=== PATIENT | female | born 1985 | race Two or more races ===

== ENCOUNTER 2017-03-30 16:13 | Emergency (ER) | payer OTHER ==
--- NOTE | 2017-03-30 16:34 | ED ---
Complex/Multi-Sys Presentation - HPI Summary HPI Summary: Pt here w/ withdrawal sx today of pain, fatigue and nausea w/ vomiting. Missed suboxone today as she forgot it at home in [facility]. She is admitted at [facility]. ISTOP indicates pt receives suboxone 8mg PO SL daily - will provide 1 x dose today. Pt states she will be getting remaining meds tomorrow. 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 - Allergies/Home Medications Allergies/Adverse Reactions: Allergies Allergy/AdvReac Type Severity Reaction Status Date / Time No Known Allergies Allergy Verified 03/30/17 16:26 PMH/Surg Hx/FS Hx/Imm Hx Previously Healthy: Yes Infectious Disease History: Yes Infectious Disease History: Denies: Traveled Outside the [place] in Last 30 Days - Social History Lives: Detention - [facility] Hx Substance Use: Yes Substance Use Type: Reports: Cocaine, Other - opiates - rx'd suboxone now Review of Systems Constitutional: Other - see HPI Positive: Photophobia Positive: Nasal Discharge - rhinorrhea Negative: Chest Pain Negative: Shortness Of Breath Positive: Vomiting Positive: no symptoms reported Positive: Arthralgia, Myalgia Skin: Negative Positive: Headache Positive: Anxious All Other Systems Reviewed And Are Negative: Yes Physical Exam Triage Information Reviewed: Yes Vital Signs On Initial Exam: Initial Vitals Temp Pulse Resp BP Pulse Ox 97.9 F 89 18 152/102 100 03/30/17 16:16 03/30/17 16:16 03/30/17 16:16 03/30/17 16:16 03/30/17 16:16 Vital Signs Reviewed: Yes Appearance: Positive: Ill-Appearing - pt lying prone on stretcher, , moaning - as soon as we discussed providing suboxone, pt perks up and is happy w/ relief. , Obese Skin: Positive: Warm - sweating Head/Face: Positive: Normal Head/Face Inspection Eyes: Positive: EOMI, Conjunctiva Clear ENT: Positive: Hearing grossly normal, Nasal drainage - clear rhinorrhea Respiratory/Lung Sounds: Positive: Clear to Auscultation, Breath Sounds Present Cardiovascular: Positive: Normal, RRR Abdomen Description: Positive: Soft Musculoskeletal: Positive: Normal, Strength/ROM Intact Neurological: Positive: Normal, Sensory/Motor Intact, Alert, Oriented to Person Place, Time, CN Intact II-III Psychiatric: Positive: Other - see above - no SI/HI Diagnostics - Vital Signs Vital Signs Temp Pulse Resp BP Pulse Ox 03/30/17 16:16 97.9 F 89 18 152/102 100 - Laboratory Lab Statement: Any lab studies that have been ordered have been reviewed, and results considered in the medical decision making process. Re-Evaluation - Re-Evaluation First Eval Change: Unchanged - nausea s/p 4mg zofran in EMS Second Eval Change: Improved - s/p suboxone 8mg SL, zofran 6mg IV and NS Complex Multi-Symp Course/Dx Course Of Treatment: Pt here for Opioid withdrawal - uses suboxone through medical rx'er and forgot dose today - having withdrawal sx. Will have access to her meds tomorrow. Will provide 1 x dose here today. Pt is happy and relieved. Vital sign recheck reveals improvement and pt's sx improved. Left in stable condition. Advised to f/u w/ [facility] as directed and return to ED if danger s/sx present. - Diagnoses Provider Diagnoses: Withdrawal from opioids Discharge - Discharge Plan Condition: Stable Disposition: HOME Patient Education Materials: Opioid Withdrawal (ED) Referrals: [facility] [Outside] Additional Instructions: You received a one time dose of suboxone here today - follow-up with PCP or [facility] for ongoing treatment Stay hydrated - drink water, gatorade, broth ,etc You may use zofran for nausea and immodium for diarrhea *If you develop intractable vomiting, diarrhea, sweats, headache, visual change , chest pain or shortness of breath, return to ED
[2017-03-30] MEDS ORDERED: Ondansetron INJ* 2 MG/ML VIAL IV ONE ×2 (16:50→16:52)
[2017-03-30] MEDS ORDERED: NS 0.9% 1000 ML* 1,000 ML IV ONE (16:50)
[2017-03-30] MEDS ORDERED: Ondansetron INJ* 2 MG/ML VIAL ONE ×2 (16:51→16:52)
[2017-03-30 16:56] VITALS: BP 152/78
[2017-03-31] MEDS ORDERED: Buprenorphine/Naloxone 8-2 MG SL TAB* 1 TAB PO ONE (16:25)
== END 2017-03-30 17:54 | disposition home or self-care (01) ==
LOC: ED 16:13
DX: F11.23 Opioid dependence with withdrawal (principal); R11.2 Nausea with vomiting, unspecified; R53.83 Other fatigue; M79.1 Myalgia; T40.0X5A Adverse effect of opium, initial encounter; Y92.9 Unspecified place or not applicable
CPT/HCPCS: 96374; 99282; A9270-GY; J2405

== ENCOUNTER 2017-04-01 18:28 | Emergency (ER) | payer OTHER ==
[2017-04-01 19:07] VITALS: BP 173/86
[2017-04-01] MEDS ORDERED: Metoclopramide TAB* 10 MG PO ONE ×2 (19:15→19:44)
--- NOTE | 2017-04-01 19:26 | ED ---
Kai Ruiz Angela, scribed for Reg Finley on 04/01/17 at 1913 . Complex/Multi-Sys Presentation - HPI Summary HPI Summary: This pt is a 31 y/0 [facility]/o [facility], vomiting, and chills. Pt reports she the last time she had 8 mg of Suboxone was yesterday in the ED. Pt describes cold sweats since yesterday. She notes her doctor is out until tomorrow and is unable to get Suboxone today. Pt is from [employer]. Pt denies chest pain, SOB, abd pain. She states she quit smoking cigarettes and has not had any drugs in a couple of days. PMHx: IVDU. - History Of Current Complaint Chief Complaint: EDDetoxRequest Time Seen by Provider: 04/01/17 18:57 Hx Obtained From: Patient Onset/Duration: Lasting Hours Timing: Hours Associated Signs And Symptoms: Positive: Nausea, Vomiting, Other - cold sweats and body aches. Negative: SOB, Chest Pain, Palpitations - Allergies/Home Medications Allergies/Adverse Reactions: Allergies Allergy/AdvReac Type Severity Reaction Status Date / Time No Known Allergies Allergy Verified 03/30/17 16:26 PMH/Surg Hx/FS Hx/Imm Hx Endocrine/Hematology History: Denies: Hx Diabetes Cardiovascular History: Denies: Hx Hypertension Infectious Disease History: No Infectious Disease History: Denies: Traveled Outside the [place] in Last 30 Days - Family History Known Family History: Negative: Seizure Disorder - Social History Alcohol Use: unknown Hx Substance Use: Yes Substance Use Type: Reports: Cocaine, Other Smoking Status (MU): Former Smoker Review of Systems Positive: Chills. Negative: Fever Negative: Chest Pain Negative: Shortness Of Breath Positive: Vomiting, Nausea. Negative: Abdominal Pain Positive: Myalgia - body aches Negative: Headache, Weakness All Other Systems Reviewed And Are Negative: Yes Physical Exam Vital Signs On Initial Exam: Initial Vitals Temp Pulse Resp BP Pulse Ox 98.5 F 58 18 168/84 98 04/01/17 18:33 04/01/17 18:33 04/01/17 18:33 04/01/17 18:33 04/01/17 18:33 Appearance: Positive: Well-Appearing, No Pain Distress Skin: Positive: Warm, Skin Color Reflects Adequate Perfusion, Dry Head/Face: Positive: Normal Head/Face Inspection Eyes: Positive: EOMI, ITZ ENT: Positive: Normal ENT inspection Neck: Positive: Supple, Nontender Respiratory/Lung Sounds: Positive: Clear to Auscultation, Breath Sounds Present Cardiovascular: Positive: RRR, Pulses are Symmetrical in both Upper and Lower Extremities Abdomen Description: Positive: Nontender, Soft Bowel Sounds: Positive: Present Musculoskeletal: Positive: Normal, Strength/ROM Intact Neurological: Positive: Normal, Sensory/Motor Intact, Alert, Oriented to Person Place, Time - [place] Coma Scale Coma Scale Total: 15 Diagnostics - Vital Signs Vital Signs Temp Pulse Resp BP Pulse Ox 04/01/17 19:00 87 173/86 99 04/01/17 18:40 168/84 04/01/17 18:35 58 97 04/01/17 18:33 98.5 F 58 18 168/84 98 - Laboratory Lab Statement: Any lab studies that have been ordered have been reviewed, and results considered in the medical decision making process. Complex Multi-Symp Course/Dx Assessment/Plan: Pt is a 31 y/o female [facility] c/o nausea, vomiting , and chills. Pt reports she the last time she had 8 mg of Suboxone was yesterday in the ED and is requesting more today. I checked with the charge nurse and the last time the pt received suboxone was today morning. She does not need suboxone today evening. We will give the pt reglan and will discharge the pt to follow up with the rehab clinic. Pt is refusing lab work up, therefore pt will be discharged with follow up with rehab clinic and pmd in the next three dyas. - Diagnoses Provider Diagnoses: Substance abuse Discharge - Discharge Plan Condition: Stable Disposition: HOME Patient Education Materials: Narcotic Abuse (ED) Referrals: [facility] [Outside] Additional Instructions: Please follow up with the rehab clinic. The documentation as recorded by the Kai urena Angela accurately reflects the service I personally performed and the decisions made by , Reg Finley.
[2017-04-01] MEDS ORDERED: Metoclopramide TAB* 10 MG ONE (19:37)
== END 2017-04-01 19:58 | disposition home or self-care (01) ==
LOC: ED 18:28
DX: R11.2 Nausea with vomiting, unspecified (principal); F19.10 Other psychoactive substance abuse, uncomplicated; Z87.891 Personal history of nicotine dependence
CPT/HCPCS: 99283; A9270-GY

== ENCOUNTER 2017-04-03 07:52 | Observation (INO) | payer OTHER ==
[2017-04-03] MEDS ORDERED: NS 0.9% 1000 ML* 2,000 ML IV ONE (09:16)
[2017-04-03] MEDS ORDERED: Ondansetron INJ* 2 MG/ML VIAL IV ONE (09:16)
[2017-04-03 09:54] LABS: Hematocrit 47 % (35-47); Hemoglobin 15.8 g/dl (12.0-16.0); Mean Corpuscular HGB Conc 34 g/dl (31-36); Mean Corpuscular Hemoglobin 29 pg (27-31); Mean Corpuscular Volume 85 fL (80-97); Mean Platelet Volume 8 um3 (7.4-10.4); Red Blood Count 5.47 10^6/ul (4.0-5.4); Red Cell Distribution Width 14 % (10.5-15); White Blood Count 17.7 10^3/ul (3.5-10.8)
[2017-04-03 10:06] LABS: Albumin 4.5 g/dL (3.2-5.2); C Reactive Protein 2.66 mg/L (< 5.00); Calcium 10.1 mg/dL (8.6-10.3); EGFR African American 106.8 (>60); Globulin 3.3 g/dL (2-4); Potassium 2.8 mmol/L (3.5-5.0); Total Bilirubin 0.6 mg/dL (0.2-1.0); Total Protein 7.8 g/dL (6.4-8.9)
[2017-04-03] MEDS ORDERED: Iohexol 300* (CONTRAST) 10 ML SDV IV ONE (11:37)
[2017-04-03] MEDS ORDERED: Metoclopramide IV* 5 MG/ML 2 ML VIAL IV SLOW PU ONE (12:07)
--- NOTE | 2017-04-03 12:12 | RAD ---
CLINICAL HISTORY: Vomiting, abdominal pain COMPARISON: None TECHNIQUE: Multiple contiguous axial CT scans were obtained of the abdomen and pelvis after the administration of intravenous contrast. Coronal and sagittal multiplanar reformations are submitted for review. Oral contrast was administered. Delayed images were obtained through the abdomen and pelvis. FINDINGS: LUNG BASES: The lung bases are clear. LIVER: The liver is normal in shape, size, contour, and attenuation. BILE DUCTS: There is no intrahepatic or extrahepatic biliary dilatation. GALLBLADDER: The gallbladder is normal, without pericholecystic inflammatory change. PANCREAS: The pancreas is normal, without mass or ductal dilatation. SPLEEN: Normal in size and appearance. UPPER GI TRACT: Evaluation of the gastrointestinal tract is limited by incomplete gastric distention. The upper GI tract is unremarkable. SMALL BOWEL AND MESENTERY: The small bowel is normal in contour, course, and caliber. There is no obstruction or dilatation. COLON: The colon is normal in contour, course, caliber. There is no pericolonic inflammatory change. There is a tubular, vermiform, hollow viscus that is blind ending, and originates from the cecum, consistent with a normal appendix. There is no periappendiceal inflammatory change. This is best seen on axial images 47 through 57. ADRENALS: Normal bilaterally. KIDNEYS: The kidneys are normal in shape, size, contour, and axis. There is no hydronephrosis or nephrolithiasis. BLADDER: The bladder is smooth in contour. PELVIC ORGANS: The uterus and adnexa are grossly normal for technique. AORTA: The aorta is normal. IVC: Unremarkable LYMPH NODES: There is no lymphadenopathy by size criteria. ABDOMINAL WALL: There is no evidence for abdominal wall hernia. BONES AND SOFT TISSUES: Unremarkable OTHER: None IMPRESSION: NO OBSTRUCTION. NO ACUTE CT PATHOLOGY OF THE VISUALIZED ABDOMEN OR PELVIS
[2017-04-03] MEDS: KCL 10 MEQ/50 ML IVPREMIX* 10 MEQ/50 ML BAG IV SCH ×3 (12:45→19:06)
[2017-04-03] MEDS ORDERED: Lidocaine 1% INJ* 10 MG/ML 30 ML SDV ONE (14:42)
[2017-04-03] MEDS ORDERED: Ondansetron INJ* 2 MG/ML VIAL IV PRN (16:10)
[2017-04-03] MEDS ORDERED: Acetaminophen TAB* 325 MG PO PRN (16:10)
[2017-04-03] MEDS ORDERED: diPHENhydraMINE PO* 25 MG PO PRN (16:12)
[2017-04-03] MEDS ORDERED: NON FORMULARY MED* (Melatonin [Melatonin] 5 MG) PO PRN (16:12)
[2017-04-03] MEDS ORDERED: Magnesium Hydroxide LIQ* 30 ML UDC PO PRN (16:12)
[2017-04-03] MEDS ORDERED: Aspirin TAB* 325 MG PO PRN (16:12)
[2017-04-03 16:19] LABS: Magnesium 2.2 mg/dL (1.9-2.7)
[2017-04-03 16:47] LABS: Urine Bilirubin Negative (Negative); Urine Glucose Negative (Negative); Urine Nitrite Negative (Negative)
[2017-04-03] MEDS ORDERED: Scopolamine 1.5 mg* PATCH TRANSDERM SCH (17:00)
[2017-04-03] MEDS ORDERED: KCL 10 MEQ/50 ML IVPREMIX* 10 MEQ/50 ML BAG ONE (17:05)
[2017-04-03] MEDS: Pantoprazole IV* 40 MG IV SCH (17:25)
[2017-04-03] MEDS: PROCHLORPERAZINE INJ 5 MG/ML 2 ML VIAL IV PRN (17:27)
[2017-04-03] MEDS ORDERED: CMCS: Melatonin (NF) 3 MG TAB PO PRN (21:13)
--- NOTE | 2017-04-03 21:54 | HP ---
ADMISSION HISTORY AND PHYSICAL: DATE OF ADMISSION: 04/03/2017. PRIMARY CARE PROVIDER: Out of the area. ADMITTING PROVIDER: AREN Nixon SUPERVISING PHYSICIAN: Dr. Razia Maciel* (dictated by AREN Nixon). CHIEF COMPLAINT: Intractable nausea and vomiting. HISTORY OF PRESENT ILLNESS: This is a 31-year-old female with a history of IV drug abuse, who presented to the emergency department with complaints of intractable vomiting. This is the third time in the last week that she presented with the same complaint since she states that she has had no improvement over that period of time. She entered [facility] opiate treatment program on Sunday, which is when her symptoms started and she states that she has really been unable to tolerate anything by mouth since that time. She is currently on Suboxone maintenance prescribed by [facility] site acquisition specialist. The patient states that she has not had a bowel movement in several days, but is passing gas. She denies any abdominal bloating. She does have some diffuse abdominal tenderness the frequency that she has been vomiting causing abdominal muscle tenderness, but no true abdominal pain. She states that her vomitus has been bilious and denies any blood or coffee-ground emesis. The patient states that she has had similar symptoms in the past generally exacerbated by some inciting factor, but when she starts vomiting, she has a difficult times stopping. There is a report that she may have been diagnosed with cyclic vomiting syndrome in the past and has previously been evaluated by Gastroenterology in the [facility], but was told that they were unable to find anything wrong with her. PAST MEDICAL HISTORY: 1. IV drug abuse, currently in treatment on Suboxone therapy. 2. Cyclic vomiting syndrome. 3. Hidradenitis. PAST SURGICAL HISTORY: Tubal ligation. HOME MEDICATIONS: 1. Acetaminophen 325 to 650 mg p.o. q.6 hours as needed for pain and fever. 2. Aspirin 325 mg p.o. daily. 3. Bismuth subsalicylate 524 mg p.o. q.1 hour as needed for nausea and vomiting. 4. Suboxone 8/2 mg sublingual daily. 5. Tums 500 to 1000 mg p.o. twice daily as needed for indigestion. 6. Docusate 100 mg p.o. b.i.d. 7. Ibuprofen 400 mg p.o. q.6 hours as needed for pain. 8. Milk of magnesia 30 mL p.o. daily. 9. Melatonin 5 mg p.o. at bedtime as needed. 10. Reglan 10 mg p.o. q.8 hours as needed for nausea. 11. Multivitamin 1 tablet p.o. daily. 12. Nicotine patch 21 mg transdermal daily. 13. MiraLAX 17 g p.o. daily. 14. Throat lozenges, 1 lozenge p.o. q.2 hours as needed. 15. Benadryl 25 to 50 mg p.o. q.4 to 6 hours as needed. 16. Mucinex 1200 mg p.o. b.i.d. as needed. SOCIAL HISTORY: The patient is currently in inpatient rehab at [facility]. She is a resident of [place] and has an apartment there waiting for when she has completed her rehab process. She does have about a 23-iagg-f-year smoking history and quit a few days ago. She has known history of IV drug abuse. REVIEW OF SYSTEMS: As noted in HPI. All other systems reviewed and otherwise negative. PHYSICAL EXAMINATION GENERAL: This is a 31-year-old female, who is pleasant and cooperative, and in no acute distress at the time of evaluation. VITAL SIGNS: Initially, temperature 98.2 degrees Fahrenheit, pulse 65 beats per minute, respiratory rate 18 per minute, oxygen saturation 95% on room air, and blood pressure 135/96 mmHg. HEENT: Head is normocephalic, atraumatic. Mucous membranes are mildly dry. RESPIRATORY: Lungs are clear to auscultation without wheezes, crackles, or rhonchi. CARDIOVASCULAR: Heart has a regular rate and rhythm without murmurs, rubs, or gallops. ABDOMEN: Soft. Diffusely tender to palpation especially in the epigastric region with bowel sounds present. PSYCH: The patient is alert, appropriately oriented and affect is appropriate to the situation. SKIN: She has multiple scarred area, which she states are prior abscesses related to her hidradenitis, but no active lesions nor concerning rashes. DIAGNOSTIC STUDIES/LAB DATA: CBC demonstrates white blood cell count of 17,700 , hemoglobin of 15.8 g/dL, and platelet count of 421,000. Comprehensive metabolic panel shows sodium of 133, potassium of 2.8, serum bicarb of 33, BUN of 13, creatinine 0.81, glucose of 119, lactic acid 0.8, magnesium 2.2. Transaminases are within normal limits. Normal total bilirubin. Lipase normal at 14. Imaging: CT abdomen and pelvis shows no acute process. ASSESSMENT AND PLAN: This is a 31-year-old female with a history of IV drug abuse, who recently entered rehab, who presents with complaints of intractable nausea and vomiting. 1. Intractable nausea and vomiting - suspect that her symptoms likely started as at least mild opiate withdrawal. She is now on Suboxone therapy for several days and doubt that acute withdrawal is still driving her symptoms, but she may have a cyclical component to her persistent vomiting and certainly has likely developed a gastritis as a result of well. No evidence of gastrointestinal hemorrhage and no acute pathology identified on CT. We plan to hydrate her with IV fluids, use regular IV antiemetics as well as a scopolamine patch and initiate IV Protonix for suspected gastritis. 2. Leukocytosis - assume that this is reactive due to her nausea and vomiting. 3. Hypokalemia secondary to gastrointestinal loss. 4. IV drug abuse - continue Suboxone. 5. Hidradenitis - no active lesion. 6. Code status. The patient is full code. 7. DVT prophylaxis. The patient is relatively low risk, but will be placed on SCDs. 8. Healthcare proxy is unknown at this time. DISPOSITION: The patient is being admitted to observation status for her intractable nausea and vomiting with anticipated length of stay to be less than 2 midnights. AREN NIXON [id number]/[facility] #: [id number] [facility]PITALRoger
[2017-04-04 08:10] VITALS: BP 111/64
[2017-04-04] MEDS: Pantoprazole IV* 40 MG IV SCH (08:58)
[2017-04-04] MEDS ORDERED: Nicotine PATCH 21 MG/24 HR* PATCH TRANSDERM SCH (09:00)
[2017-04-04] MEDS ORDERED: Influenza VAC *QUAD* 2017-18* 0.5 ML SYRINGE IM ONE (09:00)
[2017-04-04] MEDS ORDERED: Buprenorphine/Naloxone 8-2 MG SL TAB* 1 TAB SL SCH (09:00)
[2017-04-04 09:14] LABS: Hematocrit 37 % (35-47); Hemoglobin 12.6 g/dl (12.0-16.0); Mean Corpuscular HGB Conc 34 g/dl (31-36); Mean Corpuscular Hemoglobin 29 pg (27-31); Mean Corpuscular Volume 87 fL (80-97); Mean Platelet Volume 8 um3 (7.4-10.4); Red Cell Distribution Width 14 % (10.5-15); White Blood Count 7.2 10^3/ul (3.5-10.8)
[2017-04-04 09:30] LABS: BUN/Creatinine Ratio 11.8 (8-20); Calcium 8.5 mg/dL (8.6-10.3); EGFR African American 114.9 (>60); EGFR Non-African American 89.4 (>60); Potassium 3.2 mmol/L (3.5-5.0)
[2017-04-04] MEDS ORDERED: Potassium Chlor TAB* 20 MEQ TAB.ER PO ONE (11:26)
[2017-04-04] MEDS: PROCHLORPERAZINE INJ 5 MG/ML 2 ML VIAL IV PRN (11:40)
[2017-04-04] MEDS ORDERED: Nicotine Patch Removal NOTE PATCH OFF SCH (21:00)
--- NOTE | 2017-04-05 06:11 | DS ---
DISCHARGE SUMMARY: DATE OF ADMISSION: 04/03/17 DATE OF DISCHARGE: 04/04/17 PRIMARY CARE PROVIDER: Out of the area. DISCHARGING PROVIDER: AREN Nixon SUPERVISING PHYSICIAN: Dr. Juventino Almendarez* (dictated by AREN Nixon). PRIMARY DISCHARGE DIAGNOSES: 1. Intractable nausea and vomiting, likely secondary to opioid withdrawal and acute gastritis. 2. Leukocytosis likely reactive in nature secondary to profuse vomiting. 3. Hypokalemia secondary to GI loss. SECONDARY DISCHARGE DIAGNOSES: 1. History of intravenous drug abuse, recently entered rehab and started on Suboxone therapy. 2. Hidradenitis without any active lesion. DISCHARGE MEDICATIONS: 1. Acetaminophen 325 mg p.o. q.6 hours as needed for pain or fever. 2. Aspirin 325 mg p.o. daily. 3. Bismuth subsalicylate 524 mg p.o. q.1 hour as needed for nausea. 4. Suboxone 8/2 mg sublingual tab daily. 5. Tums 500 to 1000 mg p.o. twice daily as needed for indigestion. 6. Docusate 100 mg p.o. b.i.d. 7. Milk of mag 30 mL p.o. daily. 8. Melatonin 5 mg p.o. at bedtime. 9. Reglan 10 mg p.o. q.8 hours as needed for nausea. 10. Multivitamin 1 tablet p.o. daily. 11. Nicotine patch 21 mg transdermally daily. 12. Omeprazole 40 mg p.o. daily. 13. Zofran 4 mg p.o. q. 6 hours as needed for nausea. 14. MiraLAX 17 g p.o. daily. 15. Compazine 10 mg p.o. q.6 hours as needed for nausea. 16. Throat lozenges 1 lozenge p.o. q.2 hours as needed. 17. Benadryl 25 to 50 mg p.o. q.4 to 6 hours as needed. 18. Mucinex 1200 mg p.o. twice daily. Medication changes included: 1. P.r.n. Zofran. 2. P.r.n. Compazine. 3. Omeprazole. HOSPITAL IMAGING: CT of the abdomen and pelvis shows no obstruction or other acute pathology. HOSPITAL COURSE: This is a 31-year-old female with history of IV drug abuse, recently entered rehab and started on Suboxone therapy as well as hidradenitis and diagnosis of cyclic vomiting syndrome who presented to the emergency department with intractable nausea and vomiting. This is her third visit in the last week with the same complaint. The patient states that the symptoms started the day that she entered rehab. She has been unable to eat or drink anything of significance since that time. She is complaining of some diffuse abdominal tenderness which she equated to her multiple bouts of vomiting. No associated diarrhea, fevers, or other acute illness. No hematemesis or coffee- ground emesis noted. The patient underwent CT in the emergency department for her symptoms which yielded no acute pathology. She was subsequently admitted due to her intractable symptoms. She was hydrated and given regular antiemetic medications and she was able to quickly progress to a regular diet with some mild nausea, but no further vomiting. Due to the severity and frequency of her vomiting, she was also started on a PPI for a presumed associated gastritis, which is likely contributing to her persistent symptoms. DISPOSITION AND FOLLOWUP PLAN: The patient is going to be returning to [facility]. Recommend starting PPI as noted above and continuing with p.r.n. antiemetics. AREN NIXON [id number]/[facility] #: [id number] ANGY
--- NOTE | 2017-04-06 14:50 | ED ---
Ghulam Ruiz Thomas, scribed for Jason Palmer MD on 04/03/17 at 0935 . GI/ HPI - HPI Summary HPI Summary: The pt is a 31 y/o F presenting to the ED c/o persistent nausea and vomiting that began five days ago. She says she is unable to keep any fluids or solids down. She has not had a BM in the last 5 days, which is abnormal for her. She has a Hx of tubal ligation. She also complains of mild L-sided abdominal pain. She is a voluntary resident at [facility] for her prior crack cocaine and opiate use. Per patient, she has been off of these drugs for the last two months. She is on suboxone. She was seen at [facility] ED two and four days ago for withdrawal symptoms after she ran out of suboxone. The patient says that she as evaluated yesterday by the [facility] physician and she now has suboxone and has been taking her usual dose yesterday and today as directed. Pt additionally c/o dark urine. Pt denies dysuria, hematuria, dizziness, and lightheadedness. - History of Current Complaint Chief Complaint: EDGeneral Time Seen by Provider: 04/03/17 08:39 Stated Complaint: NAUSEA/VOMITING Hx Obtained From: Patient Onset/Duration: Started Days Ago - onset five days ago, Still Present Timing: Constant Severity: Severe Pain Intensity: 5 Location of Pain: Other - L-sided Associated Signs and Symptoms: Positive: Nausea, Vomiting, Other: - Dark urine. NEGATIVE: hematuria. Negative: Dizziness, Dysuria, Lightheadedness Aggravating Factor(s): Nothing Alleviating Factor(s): Nothing - Allergy/Home Medications Allergies/Adverse Reactions: Allergies Allergy/AdvReac Type Severity Reaction Status Date / Time No Known Allergies Allergy Verified 03/30/17 16:26 Home Medications: Home Medications Acetaminophen TAB* [Tylenol TAB*] 325 - 650 mg PO Q6HR 04/03/17 [History Confirmed 04/03/17] Aspirin TAB* [Aspirin 325 MG TAB*] 325 mg PO DAILY PRN 04/03/17 [History Confirmed 04/03/17] Bismuth Subsalicylate 524 mg PO Q1H PRN 04/03/17 [History Confirmed 04/03/17] Buprenorphine/Naloxone SL TAB* [Suboxone 8-2 mg SL TAB*] 1 tab.sl SL DAILY 04/03 [History Confirmed 04/03/17] Calcium Carbonate CHEW TAB* [Tums*] 500 - 1,000 mg PO BID PRN 04/03/17 [History Confirmed 04/03/17] Docusate CAP* [Colace Cap*] 100 mg PO BID PRN 04/03/17 [History Confirmed ] Ibuprofen TAB* [Advil TAB*] 400 mg PO Q6H PRN 04/03/17 [History Confirmed ] Magnesium Hydroxide LIQ* [Milk of Magnesia LIQ*] 30 ml PO DAILY PRN 04/03/17 [ History Confirmed 04/03/17] Melatonin 5 mg PO BEDTIME PRN 04/03/17 [History Confirmed 04/03/17] Metoclopramide TAB* [Reglan TAB*] 10 mg PO Q8H PRN 04/03/17 [History Confirmed 04/03/17] Multivitamins/Minerals TAB* [Theragran/minerals TAB*] 1 tab PO DAILY 04/03/17 [ History Confirmed 04/03/17] Nicotine PATCH 21 MG/24 HR* 21 mg TRANSDERM DAILY 04/03/17 [History Confirmed ] Polyethylene Glycol 3350* [Miralax*] 17 gm PO DAILY PRN 04/03/17 [History Confirmed 04/03/17] Throat Lozenges [Cough Drops Menthol] 1 val PO Q2HR PRN 04/03/17 [History Confirmed 04/03/17] diPHENhydraMINE PO* [Benadryl PO 25 MG TAB*] 25 - 50 mg PO .Q4-6H PRN 04/03/17 [ History Confirmed 04/03/17] guaiFENesin ER TAB [Mucinex*] 1,200 mg PO BID PRN 04/03/17 [History Confirmed ] PMH/Surg Hx/FS Hx/Imm Hx Previously Healthy: No Endocrine/Hematology History: Denies: Hx Diabetes Cardiovascular History: Denies: Hx Hypertension - Surgical History Surgery Procedure, Year, and Place: Tubal ligation - Immunization History Immunizations Up to Date: Unable to Obtain/Confirm Infectious Disease History: No Infectious Disease History: Denies: Traveled Outside the [place] in Last 30 Days - Family History Known Family History: Negative: Seizure Disorder - Social History Alcohol Use: None Hx Substance Use: Yes Substance Use Type: Reports: Cocaine, Other - Opiates Smoking Status (MU): Former Smoker Review of Systems Negative: Fever, Chills Negative: Erythema - eyes Negative: Sore Throat Negative: Chest Pain Negative: Shortness Of Breath Positive: Abdominal Pain - mild L-sided, Vomiting - onset five days ago, Nausea - onset five days ago Positive: other - Dark urine. Negative: dysuria, hematuria Negative: Myalgia, Edema - legs Negative: Rash Neurological: Other - NEGATIVE: dizziness, lightheadedness All Other Systems Reviewed And Are Negative: Yes Physical Exam - Summary Physical Exam Summary: Constitutional: Well-developed, Well-nourished, Alert. (-) Distressed Skin: Warm, Dry HENT: Normocephalic; Atraumatic Eyes: Conjunctiva normal Neck: Musculoskeletal ROM normal neck. (-) JVD, (-) Stridor, (-) Tracheal deviation Cardio: Rhythm regular, rate normal, Heart sounds normal; Intact distal pulses; The pedal pulses are 2+ and symmetric. Radial pulses are 2+ and symmetric. (-) Murmur Pulmonary/Chest wall: Effort normal. (-) Respiratory distress, (-) Wheezes, (-) Rales Abd: There is mild LLQ tenderness. Soft, (-) Distension, (-) Guarding, (-) Rebound Musculoskeletal: (-) Edema Lymph: (-) Cervical adenopathy Neuro: Alert, Oriented x3 Psych: Mood and affect Normal Triage Information Reviewed: Yes Vital Signs On Initial Exam: Initial Vitals Temp Pulse Resp BP Pulse Ox 98.2 F 65 18 135/96 95 04/03/17 08:02 04/03/17 08:02 04/03/17 08:02 04/03/17 08:02 04/03/17 08:02 Vital Signs Reviewed: Yes - Mathew Coma Scale Coma Scale Total: 15 Diagnostics - Vital Signs Vital Signs Temp Pulse Resp BP Pulse Ox 04/03/17 08:02 98.2 F 65 18 135/96 95 - Laboratory Result Diagrams: 04/03/17 09:32 04/03/17 09:32 Lab Statement: Any lab studies that have been ordered have been reviewed, and results considered in the medical decision making process. - CT CT Abd/Pel CT Interpretation: No Acute Changes - NO OBSTRUCTION. NO ACUTE CT PATHOLOGY OF THE VISUALIZED ABDOMEN OR PELVIS ED physician has reviewed this radiology report and agrees. CT Interpretation Completed By: Radiologist Re-Evaluation - Re-Evaluation First Eval Re-Evaluation Time: 12:07 Change: Unchanged Comment: The patient is vomiting her contrast. She says she has been admitted to [facility] for vomiting previously. She has had potassium previously as well. Second Eval Re-Evaluation Time: 14:40 Change: Unchanged Comment: She is still vomiting GIGU Course/Dx - Course Assessment/Plan: The pt is a 31 y/o F presenting to the ED c/o persistent nausea and vomiting that began five days ago. She says she is unable to keep any fluids or solids down. She has not had a BM in the last 5 days, which is abnormal for her. She has a Hx of tubal ligation. She also complains of mild L- sided abdominal pain. She is a voluntary resident at [facility] for her prior crack cocaine and opiate use. Per patient, she has been off of these drugs for the last two months. She is on suboxone. She was seen at [facility] ED two and four days ago for withdrawal symptoms after she ran out of suboxone. The patient says that she as evaluated yesterday by the [facility] physician and she now has suboxone and has been taking her usual dose yesterday and today as directed. Pt additionally c/o dark urine. Pt denies dysuria, hematuria, dizziness, and lightheadedness. Physical exam shows mild LLQ tenderness. At re-evaluation at 12:07, the patient is vomiting her contrast. At re-evaluation at 14:40, she is still vomiting. She says she has been admitted to [facility] for vomiting previously. She has had potassium previously as well. In the ED course the patient was given IV fluids and Zofran. Bloodwork shows WBC 17.7, potassium 2.9 , chloride 89. CT Abd/Pel shows NO OBSTRUCTION. NO ACUTE CT PATHOLOGY OF THE VISUALIZED ABDOMEN OR PELVIS ED physician has reviewed this radiology report and agrees. I consulted with Dr. Harris, hospitalist, who admits the patient to [facility]. Patient is diagnosed with refractory vomiting. Patient is agreeable to this plan. - Diagnoses Provider Diagnoses: Refractory nausea and vomiting - Physician Notifications Discussed Care Of Patient With: Razia Harris Time Discussed With Above Provider: 14:40 Instructed by Provider To: Other - Dr. Harris, hospitalist, will admit the patient to [facility]. Discharge - Discharge Plan Condition: Fair Disposition: ADMITTED TO [facility] Discharge Disposition Comment: By Dr. Harris The documentation as recorded by the Ghulam urena Thomas accurately reflects the service I personally performed and the decisions made by me, Jason Palmer MD.
== END 2017-04-04 13:55 | disposition home or self-care (01) ==
LOC: ED 07:52 → MED 14:44
PROVIDERS: ADMIT Internal Medicine; ATTEND Internal Medicine
DX: R11.2 Nausea with vomiting, unspecified (principal); F11.23 Opioid dependence with withdrawal; K29.00 Acute gastritis without bleeding; D72.829 Elevated white blood cell count, unspecified; E87.6 Hypokalemia; Z79.899 Other long term (current) drug therapy; Z23 Encounter for immunization
CPT/HCPCS: 36415; 74177; 80048; 80053; 81003; 83605; 83690; 83735; 85025; 86140; 90686; 96374; 96375; 99285; A9270-GY; G0378; J0780; J2001; J2405; J2765; J3480; Q9967